=== PATIENT | male | born 2000 | race Caucasian/White ===

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

== ENCOUNTER 2021-11-05 11:03 | Emergency (ER) | payer MEDICAID ==
[~2021-11-05] VITALS: Ht 175.3 cm; Wt 180.0 kg
[2021-11-05] MEDS ORDERED: ASPIRIN 325MG EC TABLET PO ONE (12:00)
[2021-11-05 12:36] LABS: BASOPHILS % 0.2 % (0.0-2.0); HEMATOCRIT. 42.8 % (42.0-52.0); HEMOGLOBIN. 14.6 g/dL (14.0-18.0); LYMPHOCYTES % 30.3 % (20.0-50.0); MEAN CORPUSCULAR HEMOGLOBIN 31.8 pg (28.0-32.0); MEAN PLATELET VOLUME 8.3 fl (7.4-10.4); MONOCYTES % 13.6 % (2.0-8.0); NEUTROPHILS % 53.9 % (40.0-76.0); PLATELET 260 x1000/uL (130-400); RED BLOOD CELL COUNT 4.61 mill/uL (4.7-6.1); RED CELL DISTRIBUTION WIDTH 12.8 % (11.6-14.6)
[2021-11-05 12:40] LABS: CHLORIDE 105 mEq/L (98-107)
[2021-11-05] MEDS ORDERED: ASPI-1497 MT (14:11)
[2021-11-05 14:45] VITALS: BP 138/81
== END 2021-11-05 15:05 | disposition home or self-care (01) ==
LOC: ER 11:03
DX: R07.9 Chest pain, unspecified (principal); F15.90 Other stimulant use, unspecified, uncomplicated; F17.210 Nicotine dependence, cigarettes, uncomplicated; Z79.82 Long term (current) use of aspirin
CPT/HCPCS: 36415; 71045; 80053; 83880; 84484; 85025; 85379; 93005; 99285

== ENCOUNTER 2021-12-09 13:31 | Emergency (ER) | payer MEDICAID ==
[~2021-12-09] VITALS: Ht 177.8 cm; Wt 68.0 kg
[~2021-12-09 13:31] MED LIST: ASPI-1497 MT
[2021-12-09 13:48] VITALS: BP 118/75
== END 2021-12-09 16:49 | disposition left against medical advice (07) ==
LOC: ER 13:31
DX: Z53.21 Procedure and treatment not carried out due to patient leaving prior to being seen by health care provider (principal)